=== PATIENT | male | born 1990 ===

== ENCOUNTER 2020-09-03 23:53 | Emergency (ER) | payer SELFPAY ==
[~2020-09-03] VITALS: Ht 165 cm; Wt 73.4 kg
[2020-09-04 00:09] VITALS: BP 131/86
[2020-09-04] MEDS ORDERED: TETANUS,DIPTH,PERTUSS P/F (BOOSTRIX) 0.5 ML VIAL IM ONE (00:30)
[2020-09-04] MEDS ORDERED: RX-TRIMETH/SULFA. 160-800 MG (BACTRIM DS) TAB PPK#2 PO STA (00:50)
[2020-09-04] MEDS ORDERED: SULF1TAB38 PO (00:53)
[2020-09-04] MEDS ORDERED: CIPR500T5 PO (00:54)
--- NOTE | 2020-09-04 00:54 | ED Lower Extremity ---
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 Allergies and Home Medications Allergies Coded Allergies: No Known Drug Allergies (Unverified , 09/04/20) Home Medications Ciprofloxacin HCl 500 Mg Tablet, 500 MG PO BID Prescribed by: GISSELLE HUNT on 09/04/2053 Sulfamethoxazole/Trimethoprim 1 Each Tablet, 1 EACH PO BID Prescribed by: GISSELLE HUNT on 09/04/2052 Patient Home Medication List Home Medication List Reviewed: Yes Review of Systems Constitutional: no symptoms reported Musculoskeletal: see HPI Skin: see HPI Psychiatric/Neurological: No Symptoms Reported Past Pssrvmo-Qdurha-Ryrxns Hx Patient Social History Tobacco Use?: Yes Tobacco type used: Cigarettes Smoking Status: Current Everyday Smoker Use of E-Cig and/or Vaping dev: No Substance use?: No Alcohol Use?: Yes Pt feels they are or have been: No Immunizations Up To Date Tetanus Booster (TDap): Unknown Past Medical History Surgeries: No Respiratory: No Cardiac: No Neurological: No Genitourinary: No Gastrointestinal: No Musculoskeletal: No Endocrine: No HEENT: No Cancer: No Integumentary: No Blood Disorders: No Physical Exam Vital Signs Vital Signs - First Documented 09/04/20 00:09 Temp 36.2 Pulse 101 Resp 18 B/P (MAP) 131/86 (101) Pulse Ox 95 O2 Delivery Room Air Capillary Refill : Less Than 3 Seconds Height, Weight, BMI Height: '" Weight: lbs. oz. kg; 26.00 BMI Method: General Appearance: WD/WN, no apparent distress Feet: right foot other (RIGHT FOOT WIHT SMALL PUNCTURE WOUND TO CENTER OF BALL OF FOOT. NO BLEEDING. DOES HAVE MILD SWELLING TO THE AREA. VERY TENDER TO SOLE WELL TOP OF FOOT. NO DRAINAGE. NO STREAKS. MOTOR/SENSORY/VASCULAR INTACT) Neurologic/Psychiatric: no motor/sensory deficits, alert, normal mood/affect, oriented x 3 Skin: normal color (PT IS ), warm/dry, other ( ABOVE) Progress/Results/Core Measures Results/Orders My Orders Orders - GISSELLE HUNT DO Dipht,Pertuss(Acell),Tet Adult (Boostrix (09/04/20 00:30) Foot, Right, 3 View (09/04/20 00:33) Rx-Trimeth/Sulfameth Ds Tab (Rx-Bactrim/ (09/04/20 00:50) Ciprofloxacin Tablet (Cipro Tablet) (09/04/20 01:00) Medications Given in ED Vital Signs/I&O 09/04/20 00:09 Temp 36.2 Pulse 101 Resp 18 B/P (MAP) 131/86 (101) Pulse Ox 95 O2 Delivery Room Air Blood Pressure Mean: 101 Diagnostic Imaging Comments XRAYS RIGHT FOOT--NO ACUTE PROCESS, PENDING RADIOLOGIST REVIEW Reviewed: Reviewed by Me Departure Impression Primary Impression: Puncture wound of plantar aspect of right foot Additional Impression: Owuacuriwr-mrkhgdyhk-fhiloqj (DPT) vaccination administered at current visit Disposition: 01 HOME, SELF-CARE Condition: Stable Departure-Patient Inst. Decision time for Depature: 00:50 Referrals: [facility] Patient Instructions: Wound Care (DC), Diphtheria and Tetanus Toxoids, and Acellular Pertussis Vaccine Add. Discharge Instructions: SOAK FOOT IN WARM SOAPY WATER 2-3 TIMES A DAY TYLENOL 1 GRAM/ MOTRIN 800 MG 4 TIMES A DAY NEEDED FOR PAIN FOLLOW UP WITH [facility] IN 1-2 DAYS FOR FURTHER CARE All discharge instructions reviewed with patient and/or family. Voiced understanding. Scripts Ciprofloxacin HCl (Ciprofloxacin HCl) 500 Mg Tablet 500 MG PO BID, #14 TAB Prov: GISSELLE HUNT DO 09/04/20 Sulfamethoxazole/Trimethoprim (Bactrim Ds Tablet) 1 Each Tablet 1 EACH PO BID, #20 TAB Prov: GISSELLE HUNT DO 09/04/20 GISSELLE HUNT DO Sep 04, 2020 00:54
[2020-09-04] MEDS ORDERED: CIPROFLOXACIN 500 MG (CIPRO) TABLET PO SCH (01:00)
--- NOTE | 2020-09-04 07:22 | Diagnostic Imaging Report ---
INDICATION: Stepped on a stuart nail, evaluate for foreign body. TIME OF EXAM: 12:41 AM 3 views of the right foot were obtained. Metatarsals are intact. Phalanges appear intact. Midfoot and hindfoot are unremarkable. No fractures are seen. No definite radiopaque soft tissue foreign body is identified. IMPRESSION: No acute feature detected. Dictated by: Dictated on workstation # [id number]
== END 2020-09-04 00:59 | disposition home or self-care (01) ==
LOC: ER 09-04 00:01
DX: S91.331A Puncture wound without foreign body, right foot, initial encounter (principal); F17.210 Nicotine dependence, cigarettes, uncomplicated; Z23 Encounter for immunization; W45.0XXA Nail entering through skin, initial encounter
CPT/HCPCS: 73630; 90715